=== PATIENT | male | born 1990 | race Two or more races ===

== ENCOUNTER 2017-08-01 02:14 | Emergency (ER) | payer SELFPAY ==
[2017-08-01] MEDS ORDERED: FAMOTIDINE 20 MG TABLET PO ONE (02:55)
[2017-08-01] MEDS ORDERED: CEPHALEXIN 500 MG CAPSULE PO ONE (02:55)
[2017-08-01] MEDS ORDERED: DEXAMETHASONE 4 MG TABLET PO ONE (02:55)
--- NOTE | 2017-08-01 03:04 | ER Document Report ---
ED Skin Rash/Insect Bite/Abscs - General Chief Complaint: Hand Swelling Stated Complaint: HAND INJURY Time Seen by Provider: 08/01/17 02:49 Mode of Arrival: Ambulatory Information source: Patient - HPI Patient complains to provider of: Skin rash/lesion, Insect bite Onset: This morning Onset/Duration: Sudden Quality of pain: Burning Severity: Moderate Skin Character: Erythema, Swelling Skin Temperature: Hot Quality of rash: Burning Identify cause: Yes - DESCRIBES BLACK ANT Exacerbated by: Denies Relieved by: Denies Similar symptoms previously: No Recently seen / treated by doctor: No - Related Data Allergies/Adverse Reactions: No Known Allergies Allergy (Verified 08/01/17 02:25) Past Medical History - General Information source: Patient - Social History Smoking Status: Unknown if Ever Smoked Frequency of alcohol use: Occasional Drug Abuse: None Lives with: Spouse/Significant other Family History: Reviewed & Not Pertinent Patient has suicidal ideation: No Patient has homicidal ideation: No - Medical History Medical History: Negative Renal/ Medical History: Denies: Hx Peritoneal Dialysis Psychiatric Medical History: Reports: None Surgical Hx: Negative Review of Systems - Review of Systems Constitutional: No symptoms reported EENT: No symptoms reported Cardiovascular: No symptoms reported Respiratory: No symptoms reported. denies: Short of breath, Wheezing Gastrointestinal: No symptoms reported Skin: See HPI Physical Exam - Vital signs Vitals: Temp Pulse Resp BP Pulse Ox 98.4 F 54 L 17 124/69 98 08/01/17 02:25 08/01/17 02:25 08/01/17 02:25 08/01/17 02:25 08/01/17 02:25 Interpretation: Bradycardic. No: Hypotensive, Tachypneic, Febrile - General General appearance: Appears well, Alert In distress: None - HEENT Head: Normocephalic Eyes: Normal Conjunctiva: Normal Ears: Normal Nasal: Normal Mouth/Lips: Normal Mucous membranes: Normal - Respiratory Respiratory status: No respiratory distress - Cardiovascular Rhythm: Regular - Abdominal Inspection: Normal - Extremities General upper extremity: No: Normal inspection - R. HAND & FOREARM (SEE BELOW) Forearm: Other - SWOLLEN, WARM, MILDLY TENDER EXTENSOR SURFACE U TO MID-FOREARM Hand: Other - DORSUM WITH MODERATE WARMTH, REDNESS AND EDEMA. PUNCTATE RED LESION IN CENTER. - Neurological Neuro grossly intact: Yes Cognition: Normal Orientation: AAOx4 - Psychological Associated symptoms: Normal affect, Normal mood - Skin Skin Temperature: Warm Skin Moisture: Dry Skin Color: Normal Skin Turgor: Elastic Skin irregularity: other - SEE ABOVE Course - Vital Signs Vital signs: Temp Pulse Resp BP Pulse Ox 98.4 F 54 L 17 124/69 98 08/01/17 02:25 08/01/17 02:25 08/01/17 02:25 08/01/17 02:08/01/17 02:25 Discharge - Discharge Clinical Impression: Local reaction to insect sting Qualifiers: Encounter type: initial encounter Injury intent: accidental or unintentional Qualified Code(s): T63.481A - Toxic effect of venom of other arthropod, accidental (unintentional), initial encounter Condition: Stable Disposition: HOME, SELF-CARE Instructions: Swollen Insect Bite or Sting ([facility]), Corticosteroid Medication ( [facility]), OTC Antihistamines ([facility]), Elevate the Injury ([facility]), Cephalexin ([facility]) Additional Instructions: KEEP HAND ELEVATED MUCH POSSIBLE. TAKE CEPHALEXIN AND DECADRON DIRECTED. ALSO, TAKE BENADRYL, 25-50 mg EVERY 4 TO 6 HOURS UNTIL SYMPTOMS BEGIN TO IMPROVE. ALSO, TAKE PEPCID OR TAGAMET OR ZANTAC DIRECTED UNTIL SYMPTOMS BEGIN TO IMPROVE. FOLLOW UP IF YOU BEGIN TO GET WORSE IN ANY WAY. Prescriptions: Cephalexin Monohydrate [Keflex 500 mg Capsule] 500 mg PO QID #20 capsule Dexamethasone 4 mg PO BID #6 tablet
[2017-08-01 03:42] VITALS: BP 126/74
== END 2017-08-01 03:40 | disposition home or self-care (01) ==
LOC: ER 02:14
DX: T63.421A Toxic effect of venom of ants, accidental (unintentional), initial encounter (principal); R00.1 Bradycardia, unspecified
CPT/HCPCS: 99281